=== PATIENT | female | born 1990 | race Two or more races ===

== ENCOUNTER 2019-05-04 09:35 | Emergency (ER) | payer SELFPAY ==
[~2019-05-04] VITALS: Ht 142.2 cm; Wt 72.7 kg
[2019-05-04] MEDS ORDERED: ONDANSETRON PF 4 MG/2 ML VIAL. IV ONE (10:00)
[2019-05-04] MEDS ORDERED: IV NORMAL SALINE 1000ML BAG 1,000 ML IV ONE ×2 (10:00)
--- NOTE | 2019-05-04 10:04 | PHYS DOC ---
Past Medical History Past Medical History: No Pertinent History (CAMELIA MCCANN DO) Past Surgical History: Cholecystectomy, (CAMELIA MCCANN DO) Smoking Status: Never Smoker Alcohol Use: None Drug Use: None (CAMELIA MCCANN DO) Adult General Chief Complaint Chief Complaint: ABDOMINAL PAIN IN [facility] HPI Patient is a 28 year old female who presents with nausea and vomiting that is been ongoing for the last 4 days. She started having mild lower abdominal pain this morning. She states that this past Saturday she started having flulike symptoms of headache, fever, runny nose. She was placed on Tamiflu that Saturday afternoon although she was not tested for the flu. The patient states that on she started having the nausea and vomiting. The patient denies any vaginal bleeding or discharge. She denies any significant medical history. She states that she is 16 weeks . [id number] Complete ROS were reviewed and found to be within normal limits, except as documented in the HPI (CAMELIA LISA APRN) Current Medications Current Medications Current Medications Medications (Trade) Dose Ordered Sig/Uzma Start Time Stop Time Status Last Admin Dose Admin Ondansetron HCl (Zofran) 4 mg 1X ONCE 05/04/19 10:00 05/04/19 10:02 DC 05/04/19 10:30 4 MG Sodium Chloride 1,000 ml @ 1,000 mls/hr 1X ONCE 05/04/19 10:00 05/04/19 10:59 DC 05/04/19 10:27 1,000 MLS/HR (CAMELIA MCCANN DO) Allergies Allergies Allergies Coded Allergies Type Severity Reaction Last Updated Verified No Known Drug Allergies 05/04/19 No (CAMELIA MCCANN DO) Physical Exam Physical Exam Constitutional: Well developed, well nourished, no acute distress, non-toxic appearance. [] HENT: Normocephalic, atraumatic, bilateral external ears normal, oropharynx moist, no oral exudates, nose normal. [] Eyes: PERRLA, EOMI, conjunctiva normal, no discharge. [] Neck: Normal range of motion, no tenderness, supple, no stridor. [] Cardiovascular:Heart rate regular rhythm, no murmur [] Lungs & Thorax: Bilateral breath sounds clear to auscultation [] Abdomen: Bowel sounds normal, soft, mild lower abdominal tenderness, no masses, no pulsatile masses. [] Skin: Warm, dry, no erythema, no rash. [] Neurologic: Alert and oriented X 3, normal motor function, normal sensory function, no focal deficits noted. [] Psychologic: Affect normal, judgement normal, mood normal. [] (SLOANCAMELIA SALVADOR) Current Patient Data Vital Signs Vital Signs Date Time Temp Pulse Resp B/P (MAP) Pulse Ox O2 Delivery O2 Flow Rate FiO2 05/04/19 10:54 90 97/58 (71) 100 Room Air 05/04/19 09:58 98.7 16 98.7 (CAMELIA MCCANN Vanessa DO) Lab Values Laboratory Tests Test 05/04/19 09:45 05/04/19 09:57 05/04/19 10:25 Urine Collection Type Unknown Urine Color Cathy Urine Clarity Cloudy Urine pH 6.5 Urine Specific [place] 1.025 Urine Protein 30 mg/dL (NEG-TRACE) Urine Glucose (UA) Negative mg/dL (NEG) Urine Ketones (Stick) >=80 mg/dL (NEG) Urine Blood Negative (NEG) Urine Nitrite Negative (NEG) Urine Bilirubin Small (NEG) Urine Urobilinogen Dipstick 1.0 mg/dL (0.2 mg/dL) Urine Leukocyte Esterase Moderate (NEG) Urine RBC Rare /HPF (0-2) Urine WBC >40 /HPF (0-4) Urine Squamous Epithelial Cells Many /LPF Urine Amorphous Sediment Present /HPF Urine Bacteria Many /HPF (0-FEW) Urine Mucus Mod /LPF POC Urine HCG, Qualitative Hcg positive (Negative) White Blood Count 7.4 x10^3/uL (4.0-11.0) Red Blood Count 4.02 x10^6/uL (3.50-5.40) Hemoglobin 12.6 g/dL (12.0-15.5) Hematocrit 35.4 % (36.0-47.0) L Mean Corpuscular Volume 88 fL (79-100) Mean Corpuscular Hemoglobin 31 pg (25-35) Mean Corpuscular Hemoglobin Concent 36 g/dL (31-37) Red Cell Distribution Width 12.5 % (11.5-14.5) Platelet Count 263 x10^3/uL (140-400) Neutrophils (%) (Auto) 69 % (31-73) Lymphocytes (%) (Auto) 24 % (24-48) Monocytes (%) (Auto) 6 % (0-9) Eosinophils (%) (Auto) 0 % (0-3) Basophils (%) (Auto) 0 % (0-3) Neutrophils # (Auto) 5.1 x10^3/uL (1.8-7.7) Lymphocytes # (Auto) 1.8 x10^3/uL (1.0-4.8) Monocytes # (Auto) 0.4 x10^3/uL (0.0-1.1) Eosinophils # (Auto) 0.0 x10^3/uL (0.0-0.7) Basophils # (Auto) 0.0 x10^3/uL (0.0-0.2) Maternal Serum HCG Beta Subunit 84078 mIU/mL (0-5) H Sodium Level 138 mmol/L (136-145) Potassium Level 3.5 mmol/L (3.5-5.1) Chloride Level 101 mmol/L (98-107) Carbon Dioxide Level 24 mmol/L (21-32) Anion Gap 13 (6-14) Blood Urea Nitrogen 8 mg/dL (7-20) Creatinine 0.6 mg/dL (0.6-1.0) Estimated GFR (Cockcroft-Gault) 118.2 BUN/Creatinine Ratio 13 (6-20) Glucose Level 110 mg/dL (70-99) H Calcium Level 8.7 mg/dL (8.5-10.1) Magnesium Level 1.8 mg/dL (1.8-2.4) Total Bilirubin 0.6 mg/dL (0.2-1.0) Aspartate Amino Transferase (AST) 67 U/L (15-37) H Alanine Aminotransferase (ALT) 103 U/L (14-59) H Alkaline Phosphatase 51 U/L (46-116) Creatine Kinase 31 U/L (26-192) Total Protein 7.0 g/dL (6.4-8.2) Albumin 3.2 g/dL (3.4-5.0) L Albumin/Globulin Ratio 0.8 (1.0-1.7) L Laboratory Tests 05/04/19 10:25 Laboratory Tests 05/04/19 10:25 (CAMELIA MCCANN DO) Lab Values Laboratory Tests Test 05/04/19 09:45 05/04/19 09:57 05/04/19 10:25 Urine Collection Type Unknown Urine Color Cathy Urine Clarity Cloudy Urine pH 6.5 Urine Specific [place] 1.025 Urine Protein 30 mg/dL (NEG-TRACE) Urine Glucose (UA) Negative mg/dL (NEG) Urine Ketones (Stick) >=80 mg/dL (NEG) Urine Blood Negative (NEG) Urine Nitrite Negative (NEG) Urine Bilirubin Small (NEG) Urine Urobilinogen Dipstick 1.0 mg/dL (0.2 mg/dL) Urine Leukocyte Esterase Moderate (NEG) Urine RBC Rare /HPF (0-2) Urine WBC >40 /HPF (0-4) Urine Squamous Epithelial Cells Many /LPF Urine Amorphous Sediment Present /HPF Urine Bacteria Many /HPF (0-FEW) Urine Mucus Mod /LPF POC Urine HCG, Qualitative Hcg positive (Negative) White Blood Count 7.4 x10^3/uL (4.0-11.0) Red Blood Count 4.02 x10^6/uL (3.50-5.40) Hemoglobin 12.6 g/dL (12.0-15.5) Hematocrit 35.4 % (36.0-47.0) L Mean Corpuscular Volume 88 fL (79-100) Mean Corpuscular Hemoglobin 31 pg (25-35) Mean Corpuscular Hemoglobin Concent 36 g/dL (31-37) Red Cell Distribution Width 12.5 % (11.5-14.5) Platelet Count 263 x10^3/uL (140-400) Neutrophils (%) (Auto) 69 % (31-73) Lymphocytes (%) (Auto) 24 % (24-48) Monocytes (%) (Auto) 6 % (0-9) Eosinophils (%) (Auto) 0 % (0-3) Basophils (%) (Auto) 0 % (0-3) Neutrophils # (Auto) 5.1 x10^3/uL (1.8-7.7) Lymphocytes # (Auto) 1.8 x10^3/uL (1.0-4.8) Monocytes # (Auto) 0.4 x10^3/uL (0.0-1.1) Eosinophils # (Auto) 0.0 x10^3/uL (0.0-0.7) Basophils # (Auto) 0.0 x10^3/uL (0.0-0.2) Maternal Serum HCG Beta Subunit 33471 mIU/mL (0-5) H Sodium Level 138 mmol/L (136-145) Potassium Level 3.5 mmol/L (3.5-5.1) Chloride Level 101 mmol/L (98-107) Carbon Dioxide Level 24 mmol/L (21-32) Anion Gap 13 (6-14) Blood Urea Nitrogen 8 mg/dL (7-20) Creatinine 0.6 mg/dL (0.6-1.0) Estimated GFR (Cockcroft-Gault) 118.2 BUN/Creatinine Ratio 13 (6-20) Glucose Level 110 mg/dL (70-99) H Calcium Level 8.7 mg/dL (8.5-10.1) Magnesium Level 1.8 mg/dL (1.8-2.4) Total Bilirubin 0.6 mg/dL (0.2-1.0) Aspartate Amino Transferase (AST) 67 U/L (15-37) H Alanine Aminotransferase (ALT) 103 U/L (14-59) H Alkaline Phosphatase 51 U/L (46-116) Creatine Kinase 31 U/L (26-192) Total Protein 7.0 g/dL (6.4-8.2) Albumin 3.2 g/dL (3.4-5.0) L Albumin/Globulin Ratio 0.8 (1.0-1.7) L Laboratory Tests 05/04/19 10:25 Laboratory Tests 05/04/19 10:25 (CAMELIA LISA APRN) EKG EKG [] (CAMELIA LISA APRN) Radiology/Procedures Radiology/Procedures [][facility] [address] [place] [address] IMAGING REPORT Signed PATIENT: MARYANN HENRIQUEZ ACCOUNT: [id number] : 1990 LOCATION: ER AGE: 28 SEX: F EXAM STATUS: REG ER ORD. PHYSICIAN: CAMELIA LISA APRN REASON: 16 weeks with abdominal pain PROCEDURE: PREG MORE THAN OR EQ TO 14 WKS Examination: PREG MORE THAN OR EQ TO 14 WKS History: Abdominal pain Comparison/Correlation: None Findings: OB ultrasound was performed transabdominal technique utilized. Intrauterine gestational sac is present. Single living intrauterine gestation is identified with heart rate of 152 bpm. Cephalic lie noted. Biparietal diameter 2.4 cm corresponding to 13 weeks 6 days. Head circumference is 8.5 cm corresponding 14 weeks 0 day. Abdominal circumference is 6.02 cm corresponding to 12 weeks 6 days. Femur length 1.1 cm corresponding 13 weeks 0 days. Average ultrasound age is 13 weeks 3 days. Clinical age is 15 weeks 6 days. Ultrasound EDC is 11/06/2019 . EDC by clinical age is 10/20/2019. Placenta is at the posterior wall. It is grade 1. Normal quantity of amniotic fluid is present. Maternal cervical length is 3.4 cm Impression: Single living intrauterine gestation corresponding to 13 weeks 3 days by average ultrasound. Electronically signed by: Brock Sheridan MD (05/04/2019 11:05 AM) [id number] DICTATED and SIGNED BY: BROCK SHERIDAN MD DATE: 05/04/19 1105 (CAMELIA LISA APRN) Course & Med Decision Making Course & Med Decision Making Pertinent Labs and Imaging studies reviewed. (See chart for details) The patient's blood pressure is elevated for a 16-week-old woman. 152 systolic. The patient is tachycardic at 117. The patient appears dry during assessment. We will give her IV fluids, Zofran, and will check labs. We will also get an ultrasound since she is having abdominal pain. Will check urine to see if she has any protein, as well as to check for urinary tract infection. Patient has 30 of protein in urine. BP improved to 97 over systolic. Not likely due to pre-eclampsia as patient also has UTI likely due to this. Will d/c home with Zofran and Keflex and have follow up with OB. Ultrasound is unremarkable. (CAMELIA LISA APRN) Dragon Disclaimer Dragon Disclaimer This electronic medical record was generated, in whole or in part, using a voice recognition dictation system. (CAMELIA LISA APRN) Departure Departure Impression: Primary Impression: Urinary tract infection Additional Impression: Abdominal pain affecting Disposition: HOME, SELF-CARE Condition: STABLE Referrals: NO PCP (PCP) TEDDY MAHONEY Jr, MD Patient Instructions: - Urinary Tract Infection Additional Instructions: Thank you for visiting [facility]. We appreciate you trusting us with your care. If any additional problems come up don't hesitate to return to visit us. Please follow up with your primary care provider so they can plan additional care if needed and know about the problem that you had. If symptoms worsen come back to the Emergency Department. Any concerning symptoms that start such as chest pain, shortness of air, weakness or numbness on one side of the body, running high fevers or any other concerning symptoms return to the ER. You have been prescribed an antibiotic today to help fight your infection. Please take all of the antibiotic as directed. If after 48 hours the infection is not improving, please return for more care. If the infection worsens, return to ER for additional care. Please fill your medications at any pharmacy and follow the prescription instructions. Please follow-up with [facility] for further care. Scripts Cephalexin (KEFLEX) 500 Mg Capsule 1 CAP PO BID for 7 Days, #14 CAP 0 Refills Prov: CAMELIA LISA APRN 05/04/19 Ondansetron (ONDANSETRON ODT) 4 Mg Tab.rapdis 1 TAB PO PRN Q6-8HRS PRN for NAUSEA, #20 TAB Prov: CAMELIA LISA APRN 05/04/19 Attending Signature Attending Signature I have reviewed the PA/CARPENTER MOLD's note and plan of care. I was available for consultation as needed during the patient's visit in the emergency department. I agree with the clinical impression, plan, and disposition. (CAMELIA MCCANN DO) Problem Qualifiers Primary Impression: Urinary tract infection Urinary tract infection type: acute cystitis Hematuria presence: with hematuria Qualified Codes: N30.01 - Acute cystitis with hematuria CAMELIA LISA APRN May 04, 2019 10:04 CAMELIA MCCANN DO May 04, 2019 20:27
[2019-05-04 10:06] LABS: BILIRUBIN,URINE SMALL (NEG); CLARITY,URINE CLOUDY; COLOR,URINE AMBER; NITRITE,URINE NEGATIVE (NEG); PH,URINE 6.5; PROTEIN,URINE 30 mg/dL (NEG-TRACE)
[2019-05-04 10:13] LABS: AMORPHOUS SEDIMENT,UR PRESENT /HPF; BACTERIA,URINE MANY /HPF (0-FEW); RBC,URINE RARE /HPF (0-2); SQUAMOUS EPITHELIAL CELL,UR MANY /LPF; WBC,URINE >40 /HPF (0-4)
[2019-05-04 10:38] LABS: BASO % 0 % (0-3); EOS % 0 % (0-3); HEMATOCRIT 35.4 % (36.0-47.0); HEMOGLOBIN 12.6 g/dL (12.0-15.5); LYMPH # 1.8 x10^3/uL (1.0-4.8); LYMPH % 24 % (24-48); MEAN CORPUSCULAR HEMOGLOBIN 31 pg (25-35); MEAN CORPUSCULAR HGB CONC 36 g/dL (31-37); MEAN CORPUSCULAR VOLUME 88 fL (79-100); MONO # 0.4 x10^3/uL (0.0-1.1); MONO % 6 % (0-9); NEUT # 5.1 x10^3/uL (1.8-7.7); NEUT % 69 % (31-73); PLATELET COUNT 263 x10^3/uL (140-400); RED BLOOD COUNT 4.02 x10^6/uL (3.50-5.40); RED CELL DISTRIBUTION WIDTH 12.5 % (11.5-14.5); WHITE BLOOD COUNT 7.4 x10^3/uL (4.0-11.0)
[2019-05-04 10:54] VITALS: BP 97/58
[2019-05-04 11:01] LABS: CALCIUM 8.7 mg/dL (8.5-10.1); CREATININE 0.6 mg/dL (0.6-1.0); GFR 118.2; POTASSIUM 3.5 mmol/L (3.5-5.1)
[2019-05-04 11:06] LABS: ALBUMIN 3.2 g/dL (3.4-5.0); ALBUMIN/GLOBULIN RATIO 0.8 (1.0-1.7); MAGNESIUM 1.8 mg/dL (1.8-2.4); TOTAL BILIRUBIN 0.6 mg/dL (0.2-1.0)
--- NOTE | 2019-05-04 11:08 | RAD ---
Examination: PREG MORE THAN OR EQ TO 14 WKS History: Abdominal pain Comparison/Correlation: None Findings: OB ultrasound was performed transabdominal technique utilized. Intrauterine gestational sac is present. Single living intrauterine gestation is identified with heart rate of 152 bpm. Cephalic lie noted. Biparietal diameter 2.4 cm corresponding to 13 weeks 6 days. Head circumference is 8.5 cm corresponding 14 weeks 0 day. Abdominal circumference is 6.02 cm corresponding to 12 weeks 6 days. Femur length 1.1 cm corresponding 13 weeks 0 days. Average ultrasound age is 13 weeks 3 days. Clinical age is 15 weeks 6 days. Ultrasound EDC is 11/06/2019 . EDC by clinical age is 10/20/2019. Placenta is at the posterior wall. It is grade 1. Normal quantity of amniotic fluid is present. Maternal cervical length is 3.4 cm Impression: Single living intrauterine gestation corresponding to 13 weeks 3 days by average ultrasound. Electronically signed by: Brock Bennett MD (05/04/2019 11:05 AM) [id number]
[2019-05-04] MEDS ORDERED: ONDA4TAB12 PO (11:50)
[2019-05-04] MEDS ORDERED: CEPH-264 PO (11:50)
== END 2019-05-04 12:19 | disposition home or self-care (01) ==
LOC: ER 09:35
DX: O23.42 Unspecified infection of urinary tract in pregnancy, second trimester (principal); O21.9 Vomiting of pregnancy, unspecified; R10.30 Lower abdominal pain, unspecified; R51 Headache; R09.89 Other specified symptoms and signs involving the circulatory and respiratory systems; R50.9 Fever, unspecified; Z90.49 Acquired absence of other specified parts of digestive tract; Z98.890 Other specified postprocedural states
CPT/HCPCS: 36415; 76805; 80053; 81001; 81025; 82550; 83735; 84702; 85025; 87086; 96361; 96374; 99284; J2405; J7030